=== PATIENT | female | born 1960 | race Two or more races ===

== ENCOUNTER 2018-08-30 06:01 | Emergency (ER) | payer OTHER ==
[~2018-08-30] VITALS: Ht 180.3 cm; Wt 77.1 kg
[2018-08-30] MEDS ORDERED: SYNTHROID50 MCG (06:26)
[2018-08-30] MEDS ORDERED: ZANTAC150 MG PO (14:50)
[2018-08-30] MEDS ORDERED: INTESTINEX680 M1 PO (14:50)
[2018-08-30] MEDS ORDERED: KETO10TA2 PO (14:50)
== END 2018-08-30 15:21 | disposition home or self-care (01) ==
LOC: ER 06:01
DX: N83.292 Other ovarian cyst, left side (principal); N83.291 Other ovarian cyst, right side